=== PATIENT | female | born 1990 | race Caucasian/White ===

== ENCOUNTER 2022-07-24 14:41 | Emergency (ER) | payer MEDICAID ==
[~2022-07-24] VITALS: Ht 167.6 cm; Wt 95.0 kg
[2022-07-24] MEDS ORDERED: KETOROLAC 60MG/2ML VIAL IM ONE (17:30)
[2022-07-24] MEDS ORDERED: ACETAMINOPHEN 325MG TABLET PO ONE (17:30)
[2022-07-24] MEDS ORDERED: LIDOCAINE 5% PATCH TOP SCH (17:30)
[2022-07-24 18:12] VITALS: BP 124/55
== END 2022-07-24 18:29 | disposition home or self-care (01) ==
LOC: ER 14:41
DX: M54.50 Low back pain, unspecified (principal); J45.909 Unspecified asthma, uncomplicated; W10.8XXA Fall (on) (from) other stairs and steps, initial encounter; Y93.89 Activity, other specified; Y92.018 Other place in single-family (private) house as the place of occurrence of the external cause
CPT/HCPCS: 72100; 81025; 96372; 99283; J1885